=== PATIENT | female | born 1975 | race Caucasian/White ===

== ENCOUNTER 2016-11-20 13:04 | Emergency (ER) | payer MEDICARE | END 2016-11-20 14:35 | disposition home or self-care (01) | LOC: ER 13:04 | DX: K04.7 Periapical abscess without sinus (principal); K08.89 Other specified disorders of teeth and supporting structures; J44.9 Chronic obstructive pulmonary disease, unspecified; R22.0 Localized swelling, mass and lump, head; F17.210 Nicotine dependence, cigarettes, uncomplicated; Z88.1 Allergy status to other antibiotic agents; Z79.899 Other long term (current) drug therapy; K02.9 Dental caries, unspecified | CPT/HCPCS: 96372; 99282-25 ==